=== PATIENT | male | born 1980 | race Caucasian/White ===

== ENCOUNTER 2017-05-31 19:07 | Emergency (ER) | payer BC ==
[2017-05-31] MEDS ORDERED: DIAZEPAM 5 MG TABLET PO ONE ×2 (19:30→20:35)
[2017-05-31] MEDS ORDERED: KETOROLAC 60 MG/2 ML VIAL IM STA (19:30)
--- NOTE | 2017-05-31 19:35 | Emergency Department Record ---
History of Present Illness - General Chief Complaint: Back Pain/Injury Stated Complaint: LOWER BACK PAIN Time Seen by Provider: 05/31/17 19:30 Source: Patient Mode of Arrival: Ambulatory Limitations: No limitations - History of Present Illness Initial Comments: 37 yo male presents to ED for evaluation of pain to the right low back after slipping on ice yesterday and catching himself before falling. Patient reports mild pain symptoms yesterday, but woke up this morning more stiff and painful. Patient reports taking Aleve at home that helped somewhat. Patient denies traumatic injury to the back, denies urinary retention, groin numbness, or lower extremity weakness on examination. Patient denies health problems at his baseline. MD Complaint: Back pain Onset/Timin -: Days(s) Place: Home Radiation: None Severity: Moderate Severity scale (1-10): 10 Quality: Sharp, Stabbing Consistency: Constant Improves With: None Worsens With: None Context: Fall Associated Symptoms: Denies other symptoms Treatments Prior to Arrival: NSAIDS Treatment Prior to Arrival Comment:: Aleve - Related Data Previous Rx's Medication Instructions Recorded Diazepam [Valium] 5 mg PO Q8H PRN #10 tab 05/31/17 Allergies Allergy/AdvReac Type Severity Reaction Status Date / Time No Known Drug Allergies Allergy Verified 05/31/17 19:17 Travel Screening - Travel/Exposure Within Last 30 Days Have you traveled within the last 30 days?: No Review of Systems Constitutional: Denies: Chills, Fever, Malaise, Night sweats Eyes: Denies: Eye discharge, Eye pain ENT: Denies: Congestion, Ear pain, Epistaxis Respiratory: Denies: Cough, Dyspnea Cardiovascular: Denies: Chest pain, Dyspnea on exertion Endocrine: Denies: Fatigue, Heat or cold intolerance Gastrointestinal: Denies: Abdominal pain, Nausea, Vomiting Genitourinary: Denies: Incontinence, Retention Musculoskeletal: Reports: Back pain. Denies: Arthralgia, Gout, Joint swelling Skin: Denies: Bruising, Change in color Neurological: Denies: Abnormal gait, Confusion, Headache, Seizure Psychiatric: Denies: Anxiety Hematological/Lymphatic: Denies: Anemia, Blood Clots Past Medical History - SOCIAL HISTORY Smoking Status: Never smoker Alcohol Use: None Drug Use: None - RESPIRATORY Hx Respiratory Disorders: No - CARDIOVASCULAR Hx Cardio Disorders: No - NEURO Hx Neuro Disorders: No - GI Hx GI Disorders: No - Hx Genitourinary Disorders: No - ENDOCRINE Hx Endocrine Disorders: No - MUSCULOSKELETAL Hx Musculoskeletal Disorders: No - PSYCH Hx Psych Problems: No - HEMATOLOGY/ONCOLOGY Hx Hematology/Oncology Disorders: No Family Medical History Any Significant Family History?: No Physical Exam - General General Appearance: Alert, Oriented x3, Cooperative, Mild distress Limitations: No limitations - Head Head exam: Atraumatic, Normocephalic, Normal inspection Head exam detail: negative: Abrasion, Contusion, Vazquez's sign, General tenderness, Hematoma, Laceration - Eye Eye exam: Normal appearance. negative: Conjunctival injection, Periorbital swelling, Periorbital tenderness, Scleral icterus - ENT Ear exam: negative: Auricular hematoma, Auricular trauma Nasal Exam: negative: Active bleeding, Discharge, Dried blood, Foreign body Mouth exam: negative: Drooling, Laceration, Muffled voice, Tongue elevation - Neck Neck exam: Normal inspection. negative: Meningismus, Tenderness - Respiratory Respiratory exam: Normal lung sounds bilaterally. negative: Rales, Respiratory distress, Rhonchi, Stridor - Cardiovascular Cardiovascular Exam: Regular rate, Normal rhythm, Normal heart sounds - GI/Abdominal GI/Abdominal exam: Soft. negative: Rebound, Rigid, Tenderness - Rectal Rectal exam: Deferred - exam: Deferred - Extremities Extremities exam: Normal inspection. negative: Calf tenderness, Pedal edema, Tenderness - Back Back exam: Reports: Paraspinal tenderness (Right SI joint TTP on examination). Denies: CVA tenderness (R), CVA tenderness (L) - Neurological Neurological exam: Alert, Oriented X3. negative: Motor sensory deficit - Psychiatric Psychiatric exam: Normal affect, Normal mood - Skin Skin exam: Normal color. negative: Abrasion Type of lesion: negative: abrasion Course Vital Signs 05/31/17 19:11 Temperature 98.4 F Pulse Rate 77 Respiratory 18 Rate Blood Pressure 130/77 Pulse Ox 100 - Reevaluation(s) Reevaluation #1: 05/31/17 20:34 Patient reassessed, reports improvement in his pain symptoms. Patient appears stable for discharge on Valium and Naprosyn as directed. Disposition Disposition: Discharge Clinical Impression: Low back strain Qualifiers: Encounter type: initial encounter Qualified Code(s): S39.012A - Strain of muscle, fascia and tendon of lower back, initial encounter Disposition: Home, Self-Care Condition: (2) Stable Instructions: Low Back Strain (ED) Additional Instructions: Return to ED if your symptoms worsen or if you have any concerns. Valium and Naprosyn as directed. Follow-up with your family doctor in 3-5 days as directed. Prescriptions: Diazepam [Valium] 5 mg PO Q8H PRN #10 tab PRN Reason: Pain - Moderate (5-7) Forms: Patient Portal Access Time of Disposition: 20:36 Quality - Quality Measures Quality Measures: N/A - Blood Pressure Screening Does Patient Have Any of the Following: No Blood Pressure Classification: Pre-Hypertensive BP Reading Systolic Measurement: 130 Diastolic Measurement: 77 Screening for High Blood Pressure: < Pre-Hypertensive BP, F/U Documented > [ G8950] Pre-Hypertensive Follow-up Interventions: Referral to alternative/primary care provider.
[2017-05-31] MEDS ORDERED: HYDROMORPHONE HCL 1 MG/ML SYRINGE IM ONE (20:14)
== END 2017-05-31 20:52 | disposition home or self-care (01) ==
LOC: ER 19:07
DX: S39.012A Strain of muscle, fascia and tendon of lower back, initial encounter (principal); X50.0XXA Overexertion from strenuous movement or load, initial encounter; Y92.007 Garden or yard of unspecified non-institutional (private) residence as the place of occurrence of the external cause
CPT/HCPCS: 99283 ×2; 96372; J3490; J1170; J1885

== ENCOUNTER 2017-06-03 09:22 | Emergency (ER) | payer BC ==
[2017-06-03] MEDS ORDERED: KETOROLAC 30 MG/ML VIAL IM ONE (09:35)
--- NOTE | 2017-06-03 09:50 | Emergency Department Record ---
History of Present Illness - General Chief Complaint: Back Pain/Injury Stated Complaint: BACK PAIN HERE COUPLE DAYS AGO Time Seen by Provider: 06/03/17 09:24 Source: Patient Mode of Arrival: Ambulatory Limitations: No limitations - History of Present Illness Initial Comments: The patient is here due to R lower back pain. The pain started 4 days ago when he was walking and started to slip and twisted his back. He then developed R lower back pain that is MUCH worse with any movement, twisting, and bending. The pain intermittently radiates down his R leg but there is no leg numbness, weakness, or any bowel or bladder issues. The patient was in the ER 3 days ago for the same issues. He does state he has a hx of a lumbar disc problem but that has been better recently. MD Complaint: Back pain Onset/Timin -: Days(s) Similar Symptoms Previously: No Radiation: Right leg Severity: Mild Severity scale (1-10): 3 Quality: Aching Consistency: Intermittent Improves With: None Worsens With: None Context: Other Associated Symptoms: Denies other symptoms - Related Data Previous Rx's Medication Instructions Recorded Diazepam [Valium] 5 mg PO Q8H PRN #10 tab 05/31/17 Cyclobenzaprine HCl [Flexeril] 10 mg PO TID PRN #20 tablet 06/03/17 Methylprednisolone [Medrol Dose 4 mg PO DAILY #1 tab.ds.pk 06/03/17 Pack] Allergies Allergy/AdvReac Type Severity Reaction Status Date / Time No Known Drug Allergies Allergy Verified 06/03/17 09:30 Travel Screening - Travel/Exposure Within Last 30 Days Have you traveled within the last 30 days?: No Review of Systems Constitutional: Denies: Chills, Fever Eyes: Denies: Eye discharge ENT: Denies: Congestion Respiratory: Denies: Cough, Dyspnea Past Medical History - SOCIAL HISTORY Smoking Status: Never smoker Alcohol Use: None Drug Use: None - RESPIRATORY Hx Respiratory Disorders: No - CARDIOVASCULAR Hx Cardio Disorders: No - NEURO Hx Neuro Disorders: No - GI Hx GI Disorders: No - Hx Genitourinary Disorders: No - ENDOCRINE Hx Endocrine Disorders: No - MUSCULOSKELETAL Hx Musculoskeletal Disorders: No - PSYCH Hx Psych Problems: No - HEMATOLOGY/ONCOLOGY Hx Hematology/Oncology Disorders: No Family Medical History Any Significant Family History?: No Physical Exam - General General Appearance: Alert, Oriented x3, Cooperative, No acute distress - Head Head exam: Atraumatic, Normocephalic, Normal inspection - Eye Eye exam: Normal appearance, PERRL - Neck Neck exam: Normal inspection, Full ROM. negative: Tenderness - Respiratory Respiratory exam: Normal lung sounds bilaterally. negative: Respiratory distress - Cardiovascular Cardiovascular Exam: Regular rate, Normal rhythm, Normal heart sounds - GI/Abdominal GI/Abdominal exam: Soft, Normal bowel sounds. negative: Tenderness - Extremities Extremities exam: Normal inspection, Full ROM, Normal capillary refill. negative: Calf tenderness, Pedal edema, Tenderness - Back Back exam: Reports: Normal inspection, Paraspinal tenderness (R L3-5 paraspinal. ). Denies: Vertebral tenderness - Neurological Neurological exam: Alert, Normal gait, Oriented X3, Reflexes normal (Patellar and achilles reflexes are 2+ and equal bilaterally.). negative: Abnormal gait, Altered, Motor sensory deficit (The motor and sensory exams are 5/5 and equal bilaterally.) Course Vital Signs 06/03/17 09:28 Temperature 98.1 F Pulse Rate 80 Respiratory 20 Rate Blood Pressure 127/77 Pulse Ox 99 - Reevaluation(s) Reevaluation #1: The patient is doing better at this time. He denies any worsening pain, any leg numbness, tingling or weakness. I did explain to him that the xrays were normal but that he will need to see his PCP for recheck and to possibly have an MRI ordered. 06/03/17 10:29 Medical Decision Making - Data Complexity MDM Data: X-Ray Ordered and/or Reviewed - Radiology Data Radiology results: Report reviewed (LS Spine: Normal per Rad.) Disposition Disposition: Discharge Clinical Impression: Low back strain Qualifiers: Encounter type: subsequent encounter Qualified Code(s): S39.012D - Strain of muscle, fascia and tendon of lower back, subsequent encounter Disposition: Home, Self-Care Condition: (2) Stable Instructions: Low Back Strain (ED) Additional Instructions: Please continue the Naprosyn and add Flexeril and a Medrol Dose pack. Please see your PCP early next week for recheck. Return to the ER for any worsening pain, any leg weakness, or any bowel or bladder issues. Prescriptions: Cyclobenzaprine HCl [Flexeril] 10 mg PO TID PRN #20 tablet PRN Reason: Pain Methylprednisolone [Medrol Dose Pack] 4 mg PO DAILY #1 tab.ds.pk Forms: Patient Portal Access Time of Disposition: 10:28 Quality - Quality Measures Quality Measures: N/A - Blood Pressure Screening View Details: Yes Does Patient Have Any of the Following: No Blood Pressure Classification: Pre-Hypertensive BP Reading Systolic Measurement: 132 Diastolic Measurement: 75 Screening for High Blood Pressure: < Pre-Hypertensive BP, F/U Documented > [ G8950] Pre-Hypertensive Follow-up Interventions: Referral to alternative/primary care provider.
--- NOTE | 2017-06-04 08:29 | RADIOLOGY REPORT ---
EXAM: LUMBAR SPINE COMPLETE HISTORY: RIGHT LOWER BACK PAIN WITH TINGLING IN RIGHT LEG SINCE FALL FOUR DAYS AGO. TECHNIQUE: AP, oblique, and lateral views of the lumbar spine were obtained as well as a spot lateral view of the lumbosacral junction. Comparison: None. FINDINGS: There is normal bone mineralization. There are five non-rib bearing lumbar type vertebra. There is equivocal levocurvature centered at the L4-L5 level. The vertebral bodies are otherwise normal in alignment and height. No acute fracture is seen. The intervertebral disks are grossly maintained. No facet arthropathy. The sacroiliac joints are normal in appearance. The intervertebral disks and facet joints are otherwise maintained. IMPRESSION: NO EVIDENCE OF ACUTE OSSEOUS OR LIGAMENTOUS INJURY. JOB NUMBER: [id number] [facility]
== END 2017-06-03 10:35 | disposition home or self-care (01) ==
LOC: ER 09:22
DX: S39.012A Strain of muscle, fascia and tendon of lower back, initial encounter (principal); X50.1XXA Overexertion from prolonged static or awkward postures, initial encounter
CPT/HCPCS: 72110; 96372; 99283; 99284; J1885